=== PATIENT | female | born 1985 | race Caucasian/White ===

== ENCOUNTER 2024-02-16 20:24 | Emergency (ER) | payer OTHER, SELFPAY ==
[2024-02-16 20:52] VITALS: BP 117/81; PULSE 111; RESP 20; TEMP 36.6; O2SAT 97
--- NOTE | 2024-02-16 21:13 | ED.FEMALEGU ---
HPI - Female Genitourinary General Date Seen: 02/16/24 Chief complaint: Urogenital Problems, Female Stated complaint: Vaginal itchiness Time Seen by Provider: 02/16/24 20:41 Source: patient Mode of arrival: ambulatory Limitations: language barrier History of Present Illness HPI Narrative: Patient is a 38-year-old lady who presents here with vaginal itching and yellowish discharge she has had this now for 3-4 months, into urgent care couple times, and despite getting both Diflucan and nystatin, she is still having symptoms. She says tonight she came to the emergency room, because she just wants to get to the bottom of this. Denies any abdominal pain, no history of previous STDs. She tells me she is not . MD elicited complaint: vaginal discharge Treatment prior to arrival: OTC vaginal cream Sexual activity: Yes Patient : No Possible : at home test not taken Related Data Home Medications ?Medication ?Instructions ?Recorded ?Confirmed No Known Home Medications 02/16/24 02/16/24 Allergies Allergy/AdvReac Type Severity Reaction Status Date / Time No Known Drug Allergies Allergy Verified 02/16/24 20:51 Review of Systems Status of ROS: Reports: 6 or more systems reviewed and unremarkable except as noted in History and below PFSH PFS Social History Smoking Status: Never smoker Non-prescribed substance use: denies use Exam Narrative: Exam Narrative: Patient seen with nurse, present, vaginal exam done, some yellowish discharge. Swabs for vaginitis panel, and GC and chlamydia done. Const: Vital Signs, click to edit/add: Vital Signs - 24 hr 02/16/24 20:52 Temperature 98 F Pulse Rate [Pulse Oximeter] 111 H Respiratory Rate 20 Blood Pressure [Ri ght Upper Arm] 117/81 Pulse Oximetry 97 Oxygen Delivery Me thod Room Air Documenting provider has reviewed patient's vital signs: yes Course Course ED Course: Discussed with the patient through the nutrition associate we will wait the swab results, and treat appropriately. Unfortunately will take longer than 24 hours to come back. She was comfortable this and follow-up with gynecology Vital Signs Vital signs: Initial Vital Signs Temperature 98 F 02/16/24 20:52 Temperature Source Temporal Artery Scan 02/16/24 20:52 Pulse Rate 111 H 02/16/24 20:52 Pulse Rhythm Regular 02/16/24 20:52 Pulse Strength 3+ Normal 02/16/24 20:52 Respiratory Rate 20 02/16/24 20:52 Blood Pressure 117/81 02/16/24 20:52 Blood Pressure Mean 93 02/16/24 20:52 Blood Pressure Position Sitting 02/16/24 20:52 Pulse Oximetry 97 02/16/24 20:52 Oxygen Delivery Method Room Air 02/16/24 20:52 Vital Signs Temperature 98 F 02/16/24 20:52 Pulse Rate 111 H 02/16/24 20:52 Respiratory Rate 20 02/16/24 20:52 Blood Pressure 117/81 02/16/24 20:52 Pulse Oximetry 97 02/16/24 20:52 Oxygen Delivery Method Room Air 02/16/24 20:52 Temperature 98 F 02/16/24 20:52 Pulse Rate 111 H 02/16/24 20:52 Respiratory Rate 20 02/16/24 20:52 Blood Pressure 117/81 02/16/24 20:52 Pulse Oximetry 97 02/16/24 20:52 Oxygen Delivery Method Room Air 02/16/24 20:52 MDM - Female Genitourinary MDM Narrative Medical decision making narrative: Discussed with her through the nutrition associate. That this is really not the place for this she really needs to see gynecology. We can do the swabs and have her follow up with Gynecology as soon as possibly Saturday after the long weekend. Any sort of treatment would be premature before then, she can try some [id number] cream, or vaginal lube or even doing douche. GC chlamydia will also be done to rule out the problem. Medical Records Attestation: I reviewed the patient's medical records. Discharge Plan Discharge Clinical Impression: Vaginitis Patient Disposition: Home, Self-Care Condition: Stable Instructions: Vaginal Discharge (ED) Additional Instructions: Will await culture results, follow-up with gynecology for their input. [facility] this week to schedule follow up. The phone number is [phone]. Activity Level: Light activity Prescriptions: No Action No Known Home Medications Follow Up/Referrals: Katey Thomas, JAMESON [Physician Customer Service Leader] - Nat Mcknight MD [Staff Physician] - Provider,Not a Local [Primary Care Provider] - Jenelle Grace MD [Staff Physician] - Stand Alone Forms: [employer] Info Instructions
[2024-02-16 22:27] LABS: Bacterial Vaginosis* Negative (Negative); Candida glab/krus NOT DETECTED (No Detected); Candida species DETECTED (No Detected); Trichomonas vaginalis NOT DETECTED (No Detected)
[2024-02-16 22:58] LABS: Chlamydia DNA Amplified* NOT DETECTED (No Detected); GC DNA Amplified* NOT DETECTED (No Detected)
== END 2024-02-16 21:56 | disposition home or self-care (01) ==
PROVIDERS: Emergency Provider Family Medicine
DX: N76.0 Acute vaginitis (principal)
CPT/HCPCS: 81513; 87210; 87481; 87491; 87591; 87661; 99283

== ENCOUNTER 2024-02-19 14:51 | Outpatient (CLI) | payer OTHER, SELFPAY | END 2024-02-19 14:52 | disposition home or self-care (01) | LOC: NFLDREF 14:52 | PROVIDERS: Visit Provider Registered Nurse | DX: Z11.4 Encounter for screening for human immunodeficiency virus [HIV] (principal) | CPT/HCPCS: 86703 ==

== ENCOUNTER 2024-03-27 11:33 | Outpatient (CLI) | payer OTHER, SELFPAY | END 2024-03-27 11:34 | disposition home or self-care (01) | LOC: NFLDREF 11:34 | PROVIDERS: Visit Provider Registered Nurse | DX: N90.89 Other specified noninflammatory disorders of vulva and perineum (principal) | CPT/HCPCS: 87109 ==

== ENCOUNTER 2024-08-07 13:48 | Outpatient (CLI) | payer OTHER, SELFPAY ==
[2024-08-07 16:03] LABS: Bacterial Vaginosis* POSITIVE (Negative); Candida glab/krus NOT DETECTED (No Detected); Candida species DETECTED (No Detected); Trichomonas vaginalis NOT DETECTED (No Detected)
[2024-08-07 16:32] LABS: Chlamydia DNA Amplified* NOT DETECTED (No Detected); GC DNA Amplified* NOT DETECTED (No Detected)
== END 2024-08-07 13:49 | disposition home or self-care (01) ==
PROVIDERS: Visit Provider Obstetrics & Gynecology
DX: N90.89 Other specified noninflammatory disorders of vulva and perineum (principal)
CPT/HCPCS: 81513; 87102; 87481; 87491; 87591; 87661

== ENCOUNTER 2024-10-31 09:17 | Outpatient (CLI) | payer OTHER, SELFPAY | END 2024-10-31 09:18 | disposition home or self-care (01) | LOC: AMB 11-05 10:42 | PROVIDERS: Visit Provider Emergency Medicine | DX: S29.9XXA Unspecified injury of thorax, initial encounter (principal); S69.91XA Unspecified injury of right wrist, hand and finger(s), initial encounter; V47.0XXA Car driver injured in collision with fixed or stationary object in nontraffic accident, initial encounter; Y92.410 Unspecified street and highway as the place of occurrence of the external cause | CPT/HCPCS: A0425; A0427 ==